=== PATIENT | male | born 1965 | race Hispanic/Latino ===

== ENCOUNTER 2018-03-08 15:21 | Day surgery (SDC) | payer BC ==
[2018-03-08 15:45] VITALS: BMI 28.0
[2018-03-08] MEDS ORDERED: Lidocaine 2% Inj (20ml) ONE (15:53)
[2018-03-08] MEDS ORDERED: Phenylephrine 10 mg/ml Inj ONE (15:54)
[2018-03-08] MEDS ORDERED: Iodixanol 320 MG/ML 200 ML BOTTLE IV ONE (15:55)
[2018-03-08] MEDS ORDERED: Iohexol 350mgl/ml 50 ML ONE (15:55)
[2018-03-08] MEDS ORDERED: Verapamil 2 ML ONE (15:55)
[2018-03-08] MEDS ORDERED: Iodixanol 320 MG/ML 100 ML BOTTLE IV ONE (15:55)
[2018-03-08] MEDS ORDERED: Adenosine 90 mg/30mL IV ONE (15:56)
[2018-03-08] MEDS ORDERED: Nitroglycerin 50mg in D5W 50 MG/250 ML BOTTLE IV ONE (15:56)
[2018-03-08 16:21] LABS: HEMOGLOBIN 15.4 g/dL (14.0-18.0); MEAN CELL VOLUME 89.1 fl (80.0-105.0); MEAN CORPUSCULAR HGB CONC 34.8 g/dl (31.0-37.0); RBC 4.97 10^6/uL (3.5-6.1); WHITE BLOOD COUNT 7.3 10^3/uL (4.5-11.0)
[2018-03-08 16:25] VITALS: RESP 20; O2SAT 97
[2018-03-08 16:31] LABS: INR 1.07; PROTHROMBIN TIME 11.9 SECONDS (9.4-12.5)
[2018-03-08 16:36] LABS: BLOOD UREA NITROGEN 14 mg/dL (7-21); CALCIUM 9.7 mg/dL (8.4-10.5); GFR NON-AFRICAN AMERICAN > 60
[2018-03-08] MEDS ORDERED: Midazolam 2 MG/2 ML VIAL ONE ×3 (16:38→17:00)
[2018-03-08] MEDS ORDERED: Bacitracin 500 Units/gm Oint Foilpak UD TOP ONE (17:22)
[2018-03-08 18:19] VITALS: TEMP 98.1
[2018-03-08 19:54] VITALS: BP 126/77; PULSE 84
[2018-03-08] MEDS ORDERED: Bacitracin 500 Units/gm Oint Foilpak UD ONE (21:28)
--- NOTE | 2018-03-08 21:30 | CARDCATH ---
PROCEDURE DATE: 03/08/2018 INDICATION: Porfirio is a pleasant 52-year-old male, with history of diet controlled hypertension, dyslipidemia, referred for evaluation of abnormal stress test. The patient was having symptoms of atypical chest discomfort with diaphoresis, underwent a nuclear stress test which showed anteroseptal defect and therefore was brought to the computer lab assistant for evaluation of underlying CAD. PROCEDURES PERFORMED: Left heart catheterization with selective left and right coronary angiogram, left ventriculogram, 6[place] left radial arterial access, wrist band for hemostasis. ANGIOGRAPHIC FINDINGS: Left main is a large-sized vessel, bifurcates into LAD, ramus intermedius, and left circumflex coronary artery. Left circumflex is a large-sized vessel, left dominant circulation, gives off two small-sized obtuse marginal branches. Ramus intermedius free of any obstructive disease. Ramus intermedius runs in the AV groove, free of any obstructive disease. LAD is a large-sized that gives off to a small-sized diagonal branches, free of any obstructive disease. RCA is a small-sized vessel, nondominant, free of any obstructive disease. Left ventricular ejection fraction is 35% to 40%. LVEDP of 13 mmHg. IMPRESSION: Non-ischemic dilated cardiomyopathy, mild to moderate LV systolic dysfunction, normal coronaries. RECOMMENDATIONS: Guideline-directed therapy for congestive heart failure. Ga Gardiner MD
== END 2018-03-08 22:16 | disposition home or self-care (01) ==
LOC: SDSVAS 15:21 → 2RSO 17:30 → SDSVAS 22:16
PROVIDERS: ATTEND Internal Medicine Interventional Cardiology
DX: I42.0 Dilated cardiomyopathy (principal); R07.89 Other chest pain; E78.5 Hyperlipidemia, unspecified; I10 Essential (primary) hypertension; R94.39 Abnormal result of other cardiovascular function study; M19.90 Unspecified osteoarthritis, unspecified site; R61 Generalized hyperhidrosis; G47.33 Obstructive sleep apnea (adult) (pediatric); R25.2 Cramp and spasm; R94.31 Abnormal electrocardiogram [ECG] [EKG]; Z88.2 Allergy status to sulfonamides; Z87.442 Personal history of urinary calculi
CPT/HCPCS: 36415; 80048; 85027; 85610; 86850; 86900; 93458; 99152; 99153; C1769; J1644 ×2; J2250; J3010; Q9966